=== PATIENT | female | born 1950 | race Caucasian/White ===

== ENCOUNTER → 2020-07-29 | Day surgery (SDC) | payer MEDICARE, OTHER ==
[2020-07-27 08:25] VITALS: BMI 33.4
[~2020-07-29] MED LIST: ATROPINE OPHTH SOLN 1% 5ML BTL LEFT EYE ONE; BALANCED SALT IRRIG SOLN COMB2 15 ML IRRIG.SOLN INTRAOCULA ONE; CYCLOPENTOLATE 1% OPHTH SOLN 2 ML BTL OP PRN; EPINEPHrine (PF) 0.3 ML in BALANCED SALT IRRIG SOLN COMB2 500 ML IRRIGATION ONE; HYALURONATE SODIUM INTRAOCULAR 1 EACH SYRINGE (12MG/ML) INTRAOCULA ONE; LACTATED RINGERS 1,000 ML IV SCH; LIDOCAINE 1% (10MG/ML) FOR IV START INTRADERMA PRN; LIDOCAINE 1% (PF) 10MG/ML VIAL SQ ONE; MIDAZOLAM 2 MG/2 ML VIAL ONE; MOXIFLOXACIN HCL 0.5% DROPS 3 ML BTL OP PRN; PHENYLEPHRINE 2.5% OPHTH DRP 2ML OP PRN; TETRACAINE 0.5% OPHTH (PF) DROPS 4 ML BTL OP PRN; TIMOLOL 0.5% OPHTH DROPS 5 ML BTL OP PRN; fentaNYL (PF) 50 MCG/ML 2 ML AMP ONE
[2020-07-29 06:52] VITALS: TEMP 99
--- NOTE | 2020-07-29 08:06 | P.OP ---
Date of Procedure: 07/29/20 Preoperative Diagnosis: NS & CS Postoperative Diagnosis: same Procedure(s) Performed: PIOL< OS Implants: AO1UV 20.50 Anesthesia: MAC Surgeon: Cas Prater Pathology: none sent Condition: stable Disposition: same day Indications for Procedure: blurry vision Operative Findings: no complications
[2020-07-29 08:09] VITALS: RESP 16
[2020-07-29 08:26] VITALS: BP 148/76; PULSE 81
--- NOTE | 2020-07-30 06:50 | OP ---
OPERATIVE REPORT DATE OF SERVICE: July 29, 2020 PREOPERATIVE DIAGNOSIS: Nuclear sclerosis and cortical sclerosis. POSTOPERATIVE DIAGNOSIS: Nuclear sclerosis and cortical sclerosis. OPERATION: Phacoemulsification of cataract and intraocular lens implant of the left eye. SURGEON: Dr. Cas Prater NARRATIVE: After obtaining the appropriate consent, the patient was brought to the operating room. There the patient was placed under cardiac monitoring, prepped and draped in the usual sterile manner. The patient was approached from the left temporal side. The mm Ant ring inked in gentian robson was placed centrally on the cornea. At the 5 o'clock position, a 1.1 mm keratome was used to create a paracentesis port. Through this opening, 1% Xylocaine MPF 50/50 mix with balanced salt solution was injected into the anterior chamber. This was followed by stabilization of the anterior chamber with Amvisc viscoelastic. At the 3 o'clock position, a 2.75 mm lupe keratome was used to create a self-scaling corneal flap incision in a Langerman fashion. Through this opening, a cystotome was introduced to begin a continuous tear capsulorrhexis which was completed using the Utrata forceps. Care was taken to ensure that the capsulorrhexis was at least the size of the clara on the anterior cornea. Hydrodissection and hydrodelineation of the lens was accomplished with balanced salt solution. Phacoemulsification of the lens utilizing phaco chop was accomplished in 12.55 seconds at 12% power. Addition Xylocaine MPF was instilled into the anterior chamber. This was followed by removal of the remaining cortex under irrigation and aspiration along with careful polishing of the posterior capsule in a capsule vacuum mode. Additional Amvisc viscoelastic was then used to stabilize the capsular bag, and the Bausch [employer] Lomb AO1UV 20.5 diopter Crystalens intraocular lens was injected into the capsular bag without difficulty. The lens was rotated 270 degrees so that the haptics resided at the 6 and 12 o'clock positions, and all remaining viscoelastic was then removed from within the capsular bag and around the anterior chamber. The eye was brought to normal intraocular pressure through the paracentesis port along with slight hydration of the incision sites. Watertight integrity was confirmed using a fluorescein strip. The patient then received 2 drops of 0.5% timolol followed by 2 drops of Vigamox and 2 drops of 1% atropine. The patient was then lightly patched and shielded in the usual manner. There was no complications from the procedure. The patient tolerated the procedure well and was returned to outpatient recovery in good condition. JAIR / LYLE: [id number] /
== END | disposition home or self-care (01) ==
LOC: OR 06:15
PROVIDERS: ATTEND Ophthalmology
DX: H25.13 Age-related nuclear cataract, bilateral (principal); H35.372 Puckering of macula, left eye; H00.023 Hordeolum internum right eye, unspecified eyelid; H00.026 Hordeolum internum left eye, unspecified eyelid; H52.03 Hypermetropia, bilateral; H52.4 Presbyopia; I10 Essential (primary) hypertension; Z79.899 Other long term (current) drug therapy; Z88.5 Allergy status to narcotic agent; Z91.048 Other nonmedicinal substance allergy status; Z79.82 Long term (current) use of aspirin; Z82.3 Family history of stroke; Z82.49 Family history of ischemic heart disease and other diseases of the circulatory system; Z80.0 Family history of malignant neoplasm of digestive organs
CPT/HCPCS: 66984; V2632; V2788; J2250; J0171; J3010; J2001

== ENCOUNTER 2020-08-26 07:48 | Day surgery (SDC) | payer MEDICARE, OTHER ==
[2020-08-24 16:05] VITALS: BMI 33.4
[~2020-08-26 07:48] MED LIST changes: -ATROPINE OPHTH SOLN 1% 5ML BTL LEFT EYE ONE; -BALANCED SALT IRRIG SOLN COMB2 15 ML IRRIG.SOLN INTRAOCULA ONE; -EPINEPHrine (PF) 0.3 ML in BALANCED SALT IRRIG SOLN COMB2 500 ML IRRIGATION ONE; -HYALURONATE SODIUM INTRAOCULAR 1 EACH SYRINGE (12MG/ML) INTRAOCULA ONE; -LACTATED RINGERS 1,000 ML IV SCH; -LIDOCAINE 1% (10MG/ML) FOR IV START INTRADERMA PRN; -LIDOCAINE 1% (PF) 10MG/ML VIAL SQ ONE; -MIDAZOLAM 2 MG/2 ML VIAL ONE; -fentaNYL (PF) 50 MCG/ML 2 ML AMP ONE
[2020-08-26] MEDS ORDERED: LACTATED RINGERS 1,000 ML IV ONE ×2 (08:06)
[2020-08-26] MEDS ORDERED: LIDOCAINE 1% (10MG/ML) FOR IV START INTRADERMA ONE (08:25)
[2020-08-26 08:38] VITALS: TEMP 98.3
[2020-08-26] MEDS ORDERED: MIDAZOLAM 2 MG/2 ML VIAL ONE (09:02)
[2020-08-26] MEDS ORDERED: fentaNYL (PF) 50 MCG/ML 2 ML AMP ONE (09:02)
[2020-08-26] MEDS ORDERED: EPINEPHrine (PF) 0.3 ML in BALANCED SALT IRRIG SOLN COMB2 500 ML IRRIGATION ONE (09:16)
[2020-08-26] MEDS ORDERED: HYALURONATE SODIUM INTRAOCULAR 1 EACH SYRINGE (12MG/ML) INTRAOCULA ONE (09:17)
[2020-08-26] MEDS ORDERED: BALANCED SALT IRRIG SOLN COMB2 15 ML IRRIG.SOLN INTRAOCULA ONE (09:18)
[2020-08-26] MEDS ORDERED: LIDOCAINE 1% (PF) 10MG/ML VIAL MISCELLANE ONE (09:18)
[2020-08-26] MEDS ORDERED: ATROPINE OPHTH SOLN 1% 5ML BTL RIGHT EYE ONE (09:18)
--- NOTE | 2020-08-26 09:39 | P.OP ---
Date of Procedure: 08/26/20 Preoperative Diagnosis: NS Postoperative Diagnosis: same Procedure(s) Performed: PIOL, OD Implants: AO1UV 20.75 Anesthesia: MAC Surgeon: Cas Prater Pathology: none sent Condition: stable Disposition: same day Indications for Procedure: blurry vision Operative Findings: No complications
[2020-08-26 10:05] VITALS: BP 120/66; PULSE 66; RESP 18
--- NOTE | 2020-08-27 22:05 | OP ---
OPERATIVE REPORT DATE OF SURGERY: August 26, 2020. PROCEDURE PERFORMED: Phacoemulsification of cataract and intraocular lens implant of the right eye. PREOPERATIVE DIAGNOSIS: Nuclear sclerosis. POSTOPERATIVE DIAGNOSIS: Nuclear sclerosis. NARRATIVE: After obtaining the appropriate consent, the patient was brought to the operating room. There the patient was placed under cardiac monitoring, prepped and draped in the usual sterile manner. The patient was approached from the right temporal side. The @@ mm Nat ring inked in gentian robson was placed centrally on the cornea. At the 11 o'clock position, a 1.1 mm keratome was used to create a paracentesis port. Through this opening, 1% Xylocaine MPF 50/50 mix with balanced salt solution was injected into the anterior chamber. This was followed by stabilization of the anterior chamber with Amvisc viscoelastic. At the 9 o'clock position, a 2.75 mm lupe keratome was used to create a self-scaling corneal flap incision in a Langerman fashion. Through this opening, a cystotome was introduced to begin a continuous tear capsulorrhexis which was completed using the Utrata forceps. Care was taken to ensure that the capsulorrhexis was at least the size of the clara on the anterior cornea. Hydrodissection and hydrodelineation of the lens was accomplished with balanced salt solution. Phacoemulsification of the lens utilizing phaco chop was accomplished in 15.72 seconds at 12% power. Addition Xylocaine MPF was instilled into the anterior chamber. This was followed by removal of the remaining cortex under irrigation and aspiration along with careful polishing of the posterior capsule in a capsule vacuum mode. Additional Amvisc viscoelastic was then used to stabilize the capsular bag, and the Bausch & Lomb Crystalens Model AOlUV 21.75 diopter intraocular lens was injected into the capsular bag without difficulty. The lens was rotated 270 degrees so that the haptics resided at the 6 and 12 o'clock positions, and all remaining viscoelastic was then removed from within the capsular bag and around the anterior chamber. The eye was brought to normal intraocular pressure through the paracentesis port along with slight hydration of the incision sites. Watertight integrity was confirmed using a fluorescein strip. The patient then received 2 drops of 0.5% timolol followed by 2 drops of 0.5% moxifloxacin and 2 drops of 1% atropine. The patient was then lightly patched and shielded in the usual manner. There was no complications from the procedure. The patient tolerated the procedure well and was returned to outpatient recovery in good condition. MMMADONNA / LYLE: [id number] / TONY
== END 2020-08-26 10:15 | disposition home or self-care (01) ==
LOC: OR 07:48
PROVIDERS: ATTEND Ophthalmology
DX: H25.11 Age-related nuclear cataract, right eye (principal); H25.012 Cortical age-related cataract, left eye; H35.372 Puckering of macula, left eye; H00.023 Hordeolum internum right eye, unspecified eyelid; Z98.42 Cataract extraction status, left eye; Z98.891 History of uterine scar from previous surgery; I10 Essential (primary) hypertension; Z90.710 Acquired absence of both cervix and uterus; Z79.899 Other long term (current) drug therapy; Z86.69 Personal history of other diseases of the nervous system and sense organs; Z80.0 Family history of malignant neoplasm of digestive organs; Z82.49 Family history of ischemic heart disease and other diseases of the circulatory system; Z82.3 Family history of stroke; Z91.09 Other allergy status, other than to drugs and biological substances; Z88.5 Allergy status to narcotic agent
CPT/HCPCS: 66984; V2632; V2788; J2250; J0171; J3010; J2001

== ENCOUNTER → 2021-10-14 | Outpatient (CLI) | payer MEDICARE, OTHER ==
[2021-10-14 14:00] VITALS: BP 180/100; PULSE 91; RESP 16; TEMP 98.1
--- NOTE | 2021-10-14 14:51 | P.GSHP ---
History of Present Illness H&P Date: 10/14/21 Chief Complaint: abnormal right breast ultrasound Ananth is a 71 year old whtie female seen in consultation for Dr. Tracy regarding an ultrasound abnormality in each breast. Patient does not feel any new lumps masses or nodules of concern in either breast. She is not complaining of any recent trauma or infection the breast. She is not complaining of any nipple discharge or skin changes. A bilateral mammogram was performed [id number] after which bilateral breast ultrasounds were ordered. These were performed on . On the ultrasounds she was noted to have in the right breast a circumscribed irregular mass measuring 0.6 x 0.5 cm. This was at the 9 o'clock position. In the left breast at the 3 o'clock position there was a 0.8 x 0.8 cm circumscribed oval mass. Additionally some simple cysts were noted in the left breast. A simple cyst was also noted in the right breast. The recommendation after reviewing the mammograms with the radiologist was for an ultrasound-guided core biopsy of the lesion in the right breast. The patient in 1988 had a left breast biopsy done which was benign. Note from Dr. Tracy reviewed 08-12-21 Caffiene: 2 cups/day nictine: none chocolate: none at this time hormones: none BCP: 5 years last used about 50 years ago Family History: father: colon cancer Hormonal History: menarche: 13 , breast fed: yes, age at first : 26 menopause: hysterectomy at 43 for fibroids, did not take ovaries BCP: 5 years last used about 50 years ago Surgical History: hysterectomy breast biopsy 2 C-sections Medical History: psuedotumor cerebri Social History: nicotine: none alcohol:wine, 1 glass/night drugs: none - Constitutional Constitutional: Denies chills, Denies fever - EENT Comment: cataract surgery Ears: deny: decreased hearing, tinnitus Ears, nose, mouth and throat: Denies headache, Denies sore throat - Breasts Breasts: bilateral: as per HPI - Cardiovascular Cardiovascular: Denies chest pain, Denies shortness of breath - Respiratory Respiratory: Denies cough, Denies 7 - Gastrointestinal Gastrointestinal: Denies abdominal pain, Denies diarrhea, Denies nausea, Denies vomiting - Genitourinary (Female) Genitourinary: Denies dysuria, Denies hematuria - Musculoskeletal Musculoskeletal: Denies myalgias - Integumentary Integumentary: Denies pruritus, Denies rash - Neurological Neurological: Denies numbness, Denies weakness - Psychiatric Psychiatric: Reports anxiety, Reports depression - Endocrine Comment: losing weight intentional Endocrine: Reports weight change, Denies fatigue - Hematologic/Lymphatic Comment: none - Allergic/Immunologic Allergic/Immunologic: Reports as per HPI Past Medical History Past Medical History: No Reported History Additional Past Medical History / Comment(s): Cataract Right Eye History of Any Multi-Drug Resistant Organisms: None Reported Past Surgical History: Section, Hysterectomy Additional Past Surgical History / Comment(s): Cataract left eye 07/29/20 Past Anesthesia/Blood Transfusion Reactions: No Reported Reaction Past Psychological History: No Psychological Hx Reported Smoking Status: Never smoker Past Alcohol Use History: Rare Past Drug Use History: None Reported - Past Family History Father Family Medical History: Cancer, Dementia Mother Family Medical History: CVA/TIA Medications and Allergies Home Medications Medication Instructions Recorded Confirmed Type Cholecalciferol [Vitamin D3 (25 25 mcg PO DAILY 08/24/20 10/14/21 History Mcg = 1000 Iu)] Co-Enzyme Q-10 1 tab PO DAILY 08/24/20 10/14/21 History Multivit with Calcium,Iron,Min 1 each PO DAILY 08/24/20 10/14/21 History [Women's Multivitamin] Zinc Gluconate [Zinc] 50 mg PO DAILY 09/16/21 10/14/21 History Allergies Allergy/AdvReac Type Severity Reaction Status Date / Time adhesive tape Allergy Rash/Hives Verified 10/14/21 13:55 codeine AdvReac Nausea & Verified 10/14/21 13:55 Vomiting Surgical - Exam Vital Signs Temp Pulse Resp BP Pulse Ox 98.1 F 91 16 180/100 98 10/14/21 13:57 10/14/21 13:57 10/14/21 13:57 10/14/21 13:57 10/14/21 13:57 BMI: 30.3 - General no distress - Eyes normal ocular movement - Neck trachea midline - Respiratory normal respiratory effort, clear to auscultation - Cardiovascular Rhythm: regular Heart Sounds: normal: S1, S2 - Abdomen Abdomen: soft, non tender, no guarding, no rigid, no rebound - Integumentary normal turgor - Neurologic no disoriented, no combative - Musculoskeletal normal gait, normal posture - Psychiatric oriented to time, oriented to person, oriented to place, speech is normal, memory intact Breast Exam: BRA: 38G Inspection: The lateral grade 3 ptosis Palpation: Right breast: Multi-positional exam fibrocystic changes no dominant masses or nodules of concern Right axilla: No adenopathy of concern Left breast: Multiple positional exam fibrocystic changes no dominant masses or nodules of concern Left axilla: No adenopathy of concern Results Mammogram and ultrasound reviewed with Dr. Titus Assessment and Plan Assessment: Impression: Macromastia Fibrocystic breast changes Radiographic abnormalities bilateral noted on ultrasound/9 o'clock position right breast circumscribed irregular mass Plan: Recommendation for ultrasound-guided core biopsy right breast CC: Dr. Tracy
== END | disposition home or self-care (01) ==
LOC: WWCWWP 13:48
PROVIDERS: ATTEND Surgery
DX: Z53.9 Procedure and treatment not carried out, unspecified reason (principal)

== ENCOUNTER → 2021-10-18 | Day surgery (SDC) | payer MEDICARE, OTHER ==
--- NOTE | 2021-10-26 11:42 | USB ---
Risk Values: Kasandra 5 year model risk: 1.2%. NCI Lifetime model risk: 2.9%. Pathology Description: Location: 9 o'clock. Marker Left Behind. Needle Type: Mammotome Cores: 4 Gauge: 13 The procedure of ultrasound guided core biopsy was explained to the patient. Benefits, alternatives, and risks were discussed. An informed consent was then obtained. The patient was placed in supine positioning for imaging and for the procedure. The overlying skin was prepped and draped in usual sterile fashion. Lidocaine was used as anesthetic into the skin and subcutaneous tissue up to area of concern in the 9:00 right breast. The lobulated 6 mm hypoechoic lesion, possible debris-filled cyst was targeted for biopsy. Under ultrasound guidance, a 13-gauge vacuum-assisted mammotome Elite biopsy gun was used to obtain 4 core samples. Following this, a biopsy clip was left in lesion. We note that the lesion collapsed at the first pass. The patient tolerated the procedure well without any immediate complication. The patient was kept in the radiology department for short stay after the procedure and then discharged home in stable condition. The patient was transferred to mammography for physician ordered post procedure mammogram for clip placement verification. Postprocedure mammogram: Clip at the site of lateral mammographic nodularity. Impression: Successful, uncomplicated ultrasound guided core biopsy of the 9:00 right breast mammographic correlate. A cystic etiology is favored as the lesion collapsed after the first pass. Full pathology results to follow. Pathology Results: Result: Benign, Fibrocystic change. RIGHT BREAST, 9:00 POSITION, ULTRASOUND GUIDED CORE BIOPSY: Proliferative fibrocystic change with fragmented benign cyst, columnar cell change, focal moderate usual ductal hyperplasia and rare microcalcification. Current specimen negative for in situ or invasive malignancy; correlation with imaging studies suggested, as clinically indicated. Tissue Density: Right: The breast tissue is heterogeneously dense. This may lower the sensitivity of mammography. Findings: The procedure of ultrasound guided core biopsy was explained to the patient. Benefits, alternatives, and risks were discussed. An informed consent was then obtained. The patient was placed in supine positioning for imaging and for the procedure. The overlying skin was prepped and draped in usual sterile fashion. Lidocaine was used as anesthetic into the skin and subcutaneous tissue up to area of concern in the 9:00 right breast. The lobulated 6 mm hypoechoic lesion, possible debris-filled cyst was targeted for biopsy. Under ultrasound guidance, a 13-gauge vacuum-assisted mammotome Elite biopsy gun was used to obtain 4 core samples. Following this, a biopsy clip was left in lesion. We note that the lesion collapsed at the first pass. The patient tolerated the procedure well without any immediate complication. The patient was kept in the radiology department for short stay after the procedure and then discharged home in stable condition. The patient was transferred to mammography for physician ordered post procedure mammogram for clip placement verification. Postprocedure mammogram: Clip at the site of lateral mammographic nodularity. Impression: Successful, uncomplicated ultrasound guided core biopsy of the 9:00 right breast mammographic correlate. A cystic etiology is favored as the lesion collapsed after the first pass. Full pathology results to follow. Overall Assessment: Benign Assessment: MG diagnostic mammo RT wo CAD - Right: Benign, BI-RAD 2. Management: Diagnostic Mammogram of the right breast in 6 months. Electronically signed and approved by: Judy Titus M.D. Radiologist
== END ==
LOC: RADUSWWP 12:46
PROVIDERS: ATTEND Surgery
DX: R92.8 Other abnormal and inconclusive findings on diagnostic imaging of breast (principal); N60.11 Diffuse cystic mastopathy of right breast; N62 Hypertrophy of breast
CPT/HCPCS: 88305; 77065; 19083; A4648

== ENCOUNTER → 2023-05-11 | Outpatient (CLI) | payer MEDICARE, OTHER ==
--- NOTE | 2023-05-11 12:21 | XR ---
EXAMINATION TYPE: XR chest 2V DATE OF EXAM: 05/11/2023 COMPARISON: NONE TECHNIQUE: PA and lateral views submitted. HISTORY: Pain FINDINGS: The lungs are clear and there is no pneumothorax, pleural effusion, or focal pneumonia. Heart size normal and no overt failure. Osseous structures demonstrate hypertrophic and degenerative changes of the spine. IMPRESSION: 1. No acute process.
--- NOTE | 2023-05-11 12:34 | XR ---
EXAMINATION TYPE: XR cervical spine comp DATE OF EXAM: 05/11/2023 COMPARISON: NONE HISTORY: Pain TECHNIQUE: Four views are submitted. FINDINGS: The odontoid is intact. There are no compression deformities. The prevertebral soft tissue structur es are within normal limits. Multilevel mild degenerative disc disease with moderate to severe dean es C6-C7. Multilevel moderate facet arthropathy. A grade 1 anterolisthesis C5-C6. There is foraminal encroachment at C5-6 and C6-C7 greater on the left. IMPRESSION: 1. Multilevel mild degenerative disc disease with moderate to severe changes C6-C7.
== END | disposition home or self-care (01) ==
LOC: RADXRMAIN 11:53
PROVIDERS: ATTEND Internal Medicine Geriatric Medicine
DX: M50.323 Other cervical disc degeneration at C6-C7 level (principal); R06.02 Shortness of breath
CPT/HCPCS: 71046; 72050

== ENCOUNTER → 2023-05-24 | Outpatient (CLI) | payer MEDICARE, OTHER ==
[2023-05-24 18:11] LABS: Rheumatoid Factor, Qnt <15 IU/mL (0-15)
[2023-05-25 01:42] LABS: Anti-DNA, DS unit >300.0 IU/mL; DNA Double-Stranded POSITIVE
[2023-05-25 09:06] LABS: HLA B27 POSITIVE
== END | disposition home or self-care (01) ==
LOC: LABWHC1 11:57
PROVIDERS: ATTEND Internal Medicine Geriatric Medicine
DX: M19.90 Unspecified osteoarthritis, unspecified site (principal)
CPT/HCPCS: 36415; 85652; 86140; 86225; 86431; 86618; 86747; 86812

== ENCOUNTER → 2023-06-02 | Outpatient (CLI) | payer MEDICARE, OTHER ==
--- NOTE | 2023-06-02 14:36 | MR ---
EXAMINATION TYPE: MR cervical spine wo/w con DATE OF EXAM: 06/02/2023 11:58 AM CLINICAL INDICATION:Female, 73 years old with history of M54.12 RADICULOPATHY, CERVICAL REGION; PHH, Neck pain, rt arm/finger numbness COMPARISON: 05/11/2023.. TECHNIQUE: Multi planar, multi sequence imaging was performed utilizing: T1-weighted, T2-weighted, an d turbo inversion recovery imaging of the cervical spine. IV Contrast: 9 cc Gadavist (none if empty) FINDINGS: Alignment: The cervical vertebral bodies have preserved heights. Alignment is within normal limits gi shady patient positioning. Bones: Multilevel disc space narrowing and osteophyte formation with facet and uncovertebral joint ar thropathy. No abnormal postcontrast enhancement. Cord: The spinal cord is unremarkable with regards to their signal intensity and morphology. No abnor mal postcontrast enhancement. Discs: Intervertebral disc signal is maintained. C2-C3: No significant disc pathology. The spinal canal is patent. No neural foraminal stenosis. C3-C4: No significant disc pathology. The spinal canal is patent. No neural foraminal stenosis. C4-C5: A disc osteophyte complex is present with mild spinal canal stenosis. Bilateral facet and unc overtebral joint arthropathy are present with mild bilateral neural foraminal stenosis. C5-C6: A disc osteophyte complex is present which minimally narrows the ventral subarachnoid space. Bilateral facet and uncovertebral joint arthropathy are present with mild bilateral neural foraminal stenosis. C6-C7: A disc osteophyte complex is present with moderate to severe spinal canal stenosis. Bilateral facet and uncovertebral joint arthropathy are present with moderate bilateral neural foraminal steno sis. C7-T1: No significant disc pathology. The spinal canal is patent. No neural foraminal stenosis. Other: None. IMPRESSION: 1. C6-C7 moderate to severe spinal canal stenosis secondary disc osteophyte complex. 2. Multilevel disc degeneration with associated osteoarthritic changes with moderate bilateral neural foraminal stenosis.
== END | disposition home or self-care (01) ==
LOC: RADMRIMAIN 11:12
PROVIDERS: ATTEND Internal Medicine Geriatric Medicine
DX: M50.320 Other cervical disc degeneration, mid-cervical region, unspecified level (principal); M99.73 Connective tissue and disc stenosis of intervertebral foramina of lumbar region; M48.02 Spinal stenosis, cervical region; M25.78 Osteophyte, vertebrae
CPT/HCPCS: 72156; A9585

== ENCOUNTER → 2024-01-23 | Outpatient (CLI) | payer MEDICARE, OTHER | END | disposition home or self-care (01) | LOC: RADMAMWWP 14:47 | PROVIDERS: ATTEND Internal Medicine Geriatric Medicine | DX: Z12.31 Encounter for screening mammogram for malignant neoplasm of breast (principal) | CPT/HCPCS: 77063; 77067 ==